=== PATIENT | female | born 1990 | race Caucasian/White ===

== ENCOUNTER 2025-06-10 19:55 | Emergency (ER) | payer BC, OTHER ==
[2025-06-10] MEDS: Ondansetron 4 MG/2 ML SDV IVPUSH ONE (20:36)
[2025-06-10] MEDS: cefTRIAXone 1 GM in Water For Injection, Sterile 10 ML IVPUSH ONE (20:54)
[2025-06-10] MEDS: Ketorolac 30 MG/ML SDV IVPUSH ONE (21:41)
== END 2025-06-10 22:03 | disposition home or self-care (01) ==
LOC: MW.ED 19:55
DX: T63.691A Toxic effect of contact with other venomous marine animals, accidental (unintentional), initial encounter (principal); E86.0 Dehydration; Z88.0 Allergy status to penicillin; Z79.899 Other long term (current) drug therapy; Z75.3 Unavailability and inaccessibility of health-care facilities
CPT/HCPCS: 73120; 96374; 96375; 96376; 99283; J0696; J1885; J2405; J1171